=== PATIENT | male | born 1930 | race Caucasian/White ===

== ENCOUNTER 2018-04-07 18:01 | Emergency (ER) | payer MEDICARE ==
[2018-04-07 19:16] LABS: #Basophils 0.1 thou/uL (0.0-0.2); #Eosinphils 0.1 thou/uL (0.0-0.7); #Lymphocytes 1.6 thou/uL (1.20-3.40); #Monocytes 0.7 thou/uL (0.11-0.59); #Neutrophils 4.9 thou/uL (1.40-6.50); %Basophils 0.7 % (0.0-1.0); %Lymphocytes 21.2 % (21.0-51.0); %Monocytes 9.2 % (0.0-10.0); %Neutrophils 66.9 % (42.0-75.0); Hemoglobin 10.6 g/dL (14.0-18.0); Mean Corpuscular HGB CONC 35.7 g/dL (32.0-36.0); Mean Corpuscular Hemoglobin 33.1 pg (27.0-31.0); Mean Corpuscular Volume 92.8 fL (78.0-98.0); Mean Platelet Volume 7.6 fL (7.4-10.4); Platelet Count 131 thou/uL (130-400); RBC Distribution Width 12.5 % (11.5-14.5); Red Blood Cell (RBC) Count 3.19 mill/uL (4.70-6.10); White Blood Cell (WBC) Count 7.4 thou/uL (4.8-10.8)
[2018-04-07 19:31] LABS: ALT (SGPT) Less than 6 U/L (8-55); AST (SGOT) 17 U/L (5-34); Albumin 3.8 g/dL (3.4-4.8); Alkaline Phosphatase 64 U/L (40-150); Anion Gap 12 mmol/L (10-20); BUN (Urea Nitrogen) 40 mg/dL (8.4-25.7); Bilirubin, Total 0.4 mg/dL (0.2-1.2); Calc. Creatinine Clearance 0 mL/min (70-130); Calcium 8.9 mg/dL (7.8-10.44); Carbon Dioxide 23 mmol/L (23-31); Chloride 109 mmol/L (98-107); Estimated GFR-MDRD 42; Globulin 2.3 g/dL (2.4-3.5); Glucose 96 mg/dL (83-110); Potassium 3.8 mmol/L (3.5-5.1); Protein, Total 6.1 g/dL (5.8-8.1); Sodium 140 mmol/L (136-145)
[2018-04-07 19:57] LABS: Bilirubin Negative (Negative); Blood, Urine Trace (Negative); Clarity Turbid (Clear); Glucose, Urine (Dipstick) Negative (Negative); Leukocyte Large (Negative); Nitrite Positive (Negative); Protein, Urine (Dipstick) > or equal to 300 mg/dL (Neg-Trace); Urobilinogen 0.2 mg/dL (0.2-1.0); pH, Urine Greater/Equal 9.0 (5.0-9.0)
[2018-04-07 20:01] LABS: Squamous Epithelial 0-3 HPF (0-3)
[2018-04-07 20:02] LABS: Bacteria/HPF 2+ HPF (None Seen); Crystals/HPF 3+ AMORPH PHOS HPF (Negative); WBC/HPF 21-50 HPF (0-3)
== END 2018-04-07 21:55 | disposition home or self-care (01) ==
LOC: SCSER 18:01
DX: N30.00 Acute cystitis without hematuria (principal); D64.9 Anemia, unspecified; E86.0 Dehydration; I25.2 Old myocardial infarction; G20 Parkinson's disease
CPT/HCPCS: 36415; 80053; 81003; 81015; 83605; 85025; 87040; 87077; 87086; 87186; 96365; J1956

== ENCOUNTER 2018-10-06 09:39 | Outpatient (CLI) | payer MEDICARE ==
--- NOTE | 2018-10-06 12:35 | RAD ---
PA AND LATERAL VIEWS CHEST: HISTORY: Cough and congestion. FINDINGS: The heart size is normal. The aorta is tortuous. The lungs are expanded without focal areas of cons olidation, pneumothoraces, or pleural effusions. 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 There are degenerative c hanges in the spine. IMPRESSION: No acute process. POS: [facility]
== END 2018-10-06 09:40 | disposition home or self-care (01) ==
LOC: SCSRAD 09:39
PROVIDERS: ATTEND Family Medicine
DX: J20.9 Acute bronchitis, unspecified (principal)
CPT/HCPCS: 71046

== ENCOUNTER 2019-02-06 18:27 | Emergency (ER) | payer MEDICARE ==
[2019-02-06 19:13] LABS: #Basophils 0.1 thou/uL (0.0-0.2); #Eosinphils 0.2 thou/uL (0.0-0.7); #Lymphocytes 1.9 thou/uL (1.20-3.40); #Monocytes 0.7 thou/uL (0.11-0.59); #Neutrophils 3.6 thou/uL (1.40-6.50); %Basophils 0.8 % (0.0-1.0); %Monocytes 10.2 % (0.0-10.0); Hemoglobin 10.9 g/dL (14.0-18.0); Mean Corpuscular HGB CONC 32.6 g/dL (32.0-36.0); Mean Corpuscular Hemoglobin 33.7 pg (27.0-31.0); Mean Platelet Volume 7.8 fL (7.4-10.4); Platelet Count 146 thou/uL (130-400); RBC Distribution Width 13.3 % (11.5-14.5); Red Blood Cell (RBC) Count 3.23 mill/uL (4.70-6.10); White Blood Cell (WBC) Count 6.4 thou/uL (4.8-10.8)
[2019-02-06 19:35] LABS: ALT (SGPT) Less than 7 U/L (8-55); AST (SGOT) 17 U/L (5-34); Albumin 3.7 g/dL (3.4-4.8); Alkaline Phosphatase 72 U/L (40-150); Anion Gap 13 mmol/L (10-20); BUN (Urea Nitrogen) 29 mg/dL (8.4-25.7); Bilirubin, Total 0.4 mg/dL (0.2-1.2); CK (CPK) 82 U/L (30-200); Calc. Creatinine Clearance 0 mL/min (70-130); Calcium 8.9 mg/dL (7.8-10.44); Carbon Dioxide 24 mmol/L (23-31); Chloride 107 mmol/L (98-107); Estimated GFR-MDRD 49; Globulin 2.5 g/dL (2.4-3.5); Glucose 105 mg/dL (83-110); Potassium 3.9 mmol/L (3.5-5.1); Protein, Total 6.2 g/dL (5.8-8.1); Sodium 140 mmol/L (136-145)
--- NOTE | 2019-02-06 19:35 | CT ---
CT OF BRAIN PERFORMED WITHOUT CONTRAST ENHANCEMENT: 02/06/19 HISTORY: Syncopal episode. History of Parkinson's. There is generalized ventricular and sulcal prominence. There is no signs of intracerebral hemorrhage or extra-axial fluid collections. Mastoid air cells are clear. There is mucosal change within the left maxillary sinus. IMPRESSION: No acute intracranial abnormalities. POS: [facility]
[2019-02-06 20:12] LABS: Bilirubin Negative (Negative); Blood, Urine Negative (Negative); Clarity CLEAR (Clear); Glucose, Urine (Dipstick) Negative (Negative); Leukocyte Negative (Negative); Nitrite Negative (Negative); Protein, Urine (Dipstick) Negative (Neg-Trace); Specific Gravity, Urine 1.013 (1.002-1.036); Urobilinogen 0.2 mg/dL (0.2-1.0); pH, Urine 5.5 (5.0-9.0)
--- NOTE | 2019-02-11 11:56 | EKG ---
Test Reason : ER INDICATION Blood Pressure : / mmHG Vent. Rate : 066 BPM Atrial Rate : 066 BPM P-R Int : 198 ms QRS Dur : 100 ms QT Int : 460 ms P-R-T Axes : 106 -03 -04 degrees QTc Int : 482 ms Sinus rhythm with 1st degree AV block Otherwise normal EKG Confirmed by CHARISSA POSEY, NOLAN Aquino ([id number]), photography editor ALEXIA CANTRELL ([id number]) on 02/11/2019 11:55:33 AM Referred By: Confirmed By:NOLAN CARRINGTON MD
== END 2019-02-06 20:45 | disposition home or self-care (01) ==
LOC: ERS 18:27
DX: R55 Syncope and collapse (principal); G20 Parkinson's disease; I25.2 Old myocardial infarction; Z79.899 Other long term (current) drug therapy; Z79.82 Long term (current) use of aspirin
CPT/HCPCS: 36415; 70450; 80053; 81003; 82550; 83605; 83880; 84484; 85025; 93005